=== PATIENT | male | born 1955 | race Caucasian/White ===

== ENCOUNTER → 2019-02-13 14:17 | Outpatient (CLI) | payer BC ==
--- NOTE | 2019-02-18 11:09 | EC ---
PATIENT:ERICA CHEUNG DATE OF SERVICE: 02/13/19 SEX: M MEDICAL RECORD: [id number] DATE OF : 55 [facility] AGE OF PATIENT: 63 ADMISSION DATE: 02/13/19 REFERRING PHYSICIAN: INTERPRETING PHYSICIAN: KENJI CARRILLO MD ECHOCARDIOGRAM REPORT ECHO CHARGES 4 ECHO COMPLETE Date: 02/13/19 CLINICAL DIAGNOSIS: MR H/O HTN ECHOCARDIOGRAPHIC MEASUREMENTS (adult normal given) AC root (d.<3.7cm) 3.7 cm LV Septum d (<1.2 cm> 1.0 cm Valve Excursion 2.5 cm LV Septum (systole) 1.5 cm Left Atria (s.<4.0cm> 3.9 cm LVPW d(<1.2cm) 1.1 cm RV (d.<2.3cm) 2.5 cm LVPW (sytole) 2.0 cm LV diastole(<5.6CM) 6.1 cm MV E-F(>70mm/sec) cm LV systole 3.4 cm LVOT Diameter 2.0 cm MV exc.(>10mm) cm Est.ejection fraction (50-75%) % DOPPLER: LVIT cm/sec A 75.0 cm/sec E 91.0 cm/sec LA cm/sec RVSP 22.0 mmHg LVOT 140 cm/sec AOP1/2T m/s Asc. Ao 158 cm/sec RVOT 93.0 cm/sec RA cm/sec PA 106 cm/sec AV Gradient Peak 9.9 mmHg AV Mean 5.3 mmHg AV Area 2.9 cm MV Gradient Peak 4.1 mmHg MV Mean 1.9 mmHg MV Area cm COMMENTS: OP - HC Sfdc Architect: 1 YUN GOODSONOE C Software Engineer: 1 Dr. Carrillo TAPE# PACS Pericardial Effusion N DATE OF SERVICE: 02/13/2019 FINDINGS: 1. Left ventricular chamber size is mildly dilated. Left ventricular systolic function is preserved at 60%. 2. Left atrium is within normal limits at 3.9 cm. Right atrium and right ventricular chamber sizes are mildly dilated. 3. Valvular structures have normal structure and motion. 4. Doppler interrogation reveals trace mitral regurgitation and trace tricuspid regurgitation. No other valvular insufficiency or stenosis. Pulmonary systolic ECHOCARDIOGRAM REPORT [id number] ERICA CHEUNG pressure is estimated at 22 mmHg. 5. No evidence of pericardial effusion or left ventricular thrombus. TRANSINT:[id number] Voice Confirmation ID: [id number] DOCUMENT ID: [id number] KENJI CARRILLO MD at 1109 CC: [id number] DICTATION DATE: 02/14/[address] MANAGER: 02/14/19 1252 DEP CLI 02/13/19 [place] [id number] [place] [id number]
== END | disposition home or self-care (01) ==
LOC: D.HCCARDIO 02-11 14:00
PROVIDERS: ATTEND Internal Medicine Interventional Cardiology
DX: I34.0 Nonrheumatic mitral (valve) insufficiency (principal)